=== PATIENT | female | born 1955 | race Caucasian/White ===

== ENCOUNTER → 2017-01-02 | Outpatient (CLI) | payer OTHER | LOC: CIMAGING 08:16 | PROVIDERS: ATTEND Family Medicine | DX: Z12.31 Encounter for screening mammogram for malignant neoplasm of breast (principal) | CPT/HCPCS: G0202 ==

== ENCOUNTER 2017-03-12 06:22 | Emergency (ER) | payer OTHER ==
--- NOTE | 2017-03-12 06:39 | CPEKG ---
Heart Rate: 81 RR Interval: 741 P-R Interval: 140 QRSD Interval: 82 QT Interval: 388 QTC Interval: 451 P Zachary: 67 QRS Zachary: 75 T Wave Zachary: -50 EKG Severity - BORDERLINE ECG - EKG Impression: SINUS RHYTHM EKG Impression: LOW VOLTAGE THROUGHOUT Electronically Signed By: Jl Norwood 15-Mar-2017 09:13:37
[2017-03-12] MEDS ORDERED: NS 500 ML IV ONE (06:52)
--- NOTE | 2017-03-12 07:15 | EDPHY ---
H & P Stated Complaint: CP Time Seen by Provider: 03/12/17 06:47 - Personal History Current Tetanus Diphtheria and Acellular Pertussis (TDAP): Unsure - Medical/Surgical History Hx Asthma: No Hx Chronic Respiratory Disease: No Hx Diabetes: No Hx Cardiac Disease: Yes Hx Renal Disease: No Hx Cirrhosis: No Hx Alcoholism: No Hx HIV/AIDS: No Hx Splenectomy or Spleen Trauma: No Other PMH: med hx-heavy menses and high cholesterol. [id number],tubal ligation - Social History Smoking Status: Former smoker Constitutional: Initial Vital Signs Temperature (C) 36.5 C 03/12/17 06:26 Heart Rate 92 03/12/17 06:26 Respiratory Rate 20 03/12/17 06:26 Blood Pressure 157/84 H 03/12/17 06:26 O2 Sat (%) 99 03/12/17 06:26 O2 Delivery Mode Room Air Allergies/Adverse Reactions: No Known Allergies Allergy (Verified 06/29/13 20:49) Home Medications: Medication Instructions Recorded Lovastatin [Mevacor] 20 mg PO 11/23/11 Lisinopril 10 mg PO DAILY #30 tablet 03/12/17 Medical Decision Making ED Course/Re-evaluation: CHIEF COMPLAINT: Worried about blood pressure HISTORY OF PRESENT ILLNESS: This is a 62-year-old healthy female who this past Monday had a 5/10 minute episode of sharp chest pain. She presented to her primary care physician. That is joseph performed an EKG and stated that the EKG was abnormal. She also noted the patient slightly high blood pressure. According to the patient there is no follow-up plan at this point she was just going to check back with the physician in a few months. Patient has been worrying about her blood pressure and her EKG so she came here to the emergency department this morning because she could not sleep morning about it. She also describes some mild nausea 2 days ago. She is very clear that she has absolutely no symptoms now at all. REVIEW OF SYSTEMS: A 10 point review of systems was performed and is negative with the exception of the elements mentioned in the history of present illness. PHYSICAL EXAM: HR, BP, O2 Sat, RR. Temp noted. She has slightly elevated blood pressure at 150s over 90s General Appearance: Alert, well hydrated, appropriate, and non-toxic appearing. Head: Atraumatic without scalp tenderness or obvious injury Eyes: Pupils equal, round, reactive to light and accommodation, EOMI, no trauma , no injection. Ears: Clear bilaterally, no perforation, normal landmarks Nose: Atraumatic, no rhinorrhea, clear. Throat: There is no erythema or exudates, no lesions, normal tonsils, mucus membranes moist. Neck: Supple, 2+ carotid upstroke, nontender, no lymphadenopathy. Respiratory: No retractions, no distress, no wheezes, and no accessory muscle use. Lungs are clear to auscultation bilaterally. Cardiovascular: Regular rate and rhythm, no murmurs, rubs, or gallops. Bilateral carotid, radial, dorsalis pedis, and posterior tibial pulses intact. Good capillary refill all extremities. Gastrointestinal: Abdomen is soft, nontender, non-distended, no masses, no rebound, no guarding, no peritoneal signs. Musculoskeletal: Normal active ROM of all extremities, atraumatic. Neurological: Alert, appropriate, and interactive. The patient has normal DTRs and non-focal cranial nerves, motor, sensory, and cerebellar exam. Skin: No rashes, good turgor, no nodules on palpation. Past medical history: Patient denies Past surgical history: Patient denies Family history: No smoking cardiac history Social history: Single, employed, does not abuse tobacco drugs or alcohol DIAGNOSTICS/PROCEDURES/CRITICAL CARE TIME: The 12 lead EKG was interpreted by myself. See hard copy and/or "tracemaster" electronic copy for interpretation. I have no prior EKGs available for comparison. This EKG shows low voltage, poor R-wave progression, and flat to slightly inverted T-waves in the precordial and lateral leads. EKG could represent ischemia verses normal variant for this patient. She is asymptomatic DIFFERENTIAL DIAGNOSIS: Includes but is not limited to: Essential hypertension, renovascular hypertension, transient hypertension, psychogenic hypertension MEDICAL DECISION MAKING: This patient is completely asymptomatic and is really here because she cannot sleep because she is worried about her visit with her physician 5 days ago who told her she has slightly high blood pressure and an abnormal EKG. Agree the EKG is abnormal but in the face of no symptoms do not think she requires admission to the hospital. However, I will speak to the cardiology and arrange evaluation 1st thing in the morning. She will return here immediately if she develops any chest pain or symptoms. I have also checked her CBC and kidney function and I will start a low-dose DAVID-inhibitor to protect her from any hypotensive episodes will ask her to take her blood pressure twice daily and report that back to her PCP. I spoke to Dr. Norwood, Cardiology, he will arrange a clinic consultation and stress test tomorrow with the patient. I have discussed the findings with the patient and answered her questions. She understands and will follow up with Cardiology as directed. The patient is safe for discharge home. - Data Points Laboratory Results: Laboratory Results 03/12/17 07:15 03/12/17 07:15 03/12/17 03/12/17 07:15 07:15 WBC 4.32 10^3/uL 10^3/uL (3.80-9.50) RBC 4.94 10^6/uL 10^6/uL (4.18-5.33) Hgb 15.7 g/dL g/dL (12.6-16.3) Hct 44.8 % % (38.0-47.0) MCV 90.7 fL fL (81.5-99.8) MCH 31.8 pg pg (27.9-34.1) MCHC 35.0 g/dL g/dL (32.4-36.7) RDW 13.1 % % (11.5-15.2) Plt Count 335 10^3/uL 10^3/uL (150-400) MPV 9.7 fL fL (8.7-11.7) Neut % (Auto) 64.2 % % (39.3-74.2) Lymph % (Auto) 27.8 % % (15.0-45.0) [place] % (Auto) 6.9 % % (4.5-13.0) Eos % (Auto) 0.7 % % (0.6-7.6) Baso % (Auto) 0.2 % L % (0.3-1.7) Nucleat RBC Rel Count 0.0 % % (0.0-0.2) Absolute Neuts (auto) 2.77 10^3/uL 10^3/uL (1.70-6.50) Absolute Lymphs (auto) 1.20 10^3/uL 10^3/uL (1.00-3.00) Absolute Monos (auto) 0.30 10^3/uL 10^3/uL (0.30-0.80) Absolute Eos (auto) 0.03 10^3/uL 10^3/uL (0.03-0.40) Absolute Basos (auto) 0.01 10^3/uL L 10^3/uL (0.02-0.10) Absolute Nucleated RBC 0.00 10^3/uL 10^3/uL (0-0.01) Immature Gran % 0.2 % % (0.0-1.1) Immature Gran # 0.01 10^3/uL 10^3/uL (0.00-0.10) Sodium 145 mEq/L mEq/L (135-145) Potassium 3.7 mEq/L mEq/L (3.5-5.2) Chloride 113 mEq/L H mEq/L (97-110) Carbon Dioxide 17 mEq/l L mEq/l (22-31) Anion Gap 15 mEq/L mEq/L (8-16) BUN 11 mg/dL mg/dL (7-23) Creatinine 0.7 mg/dL mg/dL (0.6-1.0) Estimated GFR > 60 Glucose 103 mg/dL H mg/dL (70-100) Calcium 9.9 mg/dL mg/dL (8.5-10.4) Medications Given: Discontinued Medications Sodium Chloride (Ns) 500 mls @ 1,000 mls/hr IV EDNOW ONE PRN Reason: Protocol Stop: 03/12/17 07:21 Last Admin: 03/12/17 07:29 Dose: 500 mls Departure - Departure Disposition: Home, Routine, Self-Care Clinical Impression: Borderline hypertension, Abnormal EKG Condition: Good Instructions: Hypertension (ED) Additional Instructions: Start the Lisinopril 10mg as directed. Dr. Norwood's office at [facility] will call you tomorrow morning to arrange a clinic consultation and stress test. Referrals: [facility] [Other] - As per Instructions Jl Norwood MD [Medical Doctor] - As per Instructions (Cardiology) Prescriptions: Lisinopril 10 mg PO DAILY #30 tablet Report Scribed for: Milton Conroy Report Scribed by: Sandrine Layton Date of Report: 03/12/17 Time of Report: 08:43
[2017-03-12 07:27] LABS: PLATELET COUNT 335 10^3/uL (150-400)
[2017-03-12 08:29] VITALS: RESP 16; O2SAT 97
[2017-03-12 08:57] VITALS: BP 135/76; PULSE 71; TEMP 98.6
== END 2017-03-12 08:57 | disposition home or self-care (01) ==
PROC: 3E0337Z Introduction of Electrolytic and Water Balance Substance into Peripheral Vein, Percutaneous Approach (ICD-10-PCS; principal; 2017-03-12)
DX: R03.0 Elevated blood-pressure reading, without diagnosis of hypertension (principal); R94.31 Abnormal electrocardiogram [ECG] [EKG]; E86.9 Volume depletion, unspecified; Z87.891 Personal history of nicotine dependence